=== PATIENT | male | born 1940 | race Caucasian/White ===

== ENCOUNTER → 2016-10-07 15:38 | Outpatient (CLI) | payer MEDICARE, OTHER ==
[2015-02-14 10:24] VITALS: BMI 28.7
[~2016-10-07 15:38] MED LIST: ELIQUIS2.5 MG PO; MS CONTIN15 MG PO; NAPROSYN250 MG PO; ROXICODONE15 MG PO; VIAGRA100 MG PO
== END | disposition home or self-care (01) ==
LOC: D.MRI 15:38
DX: M75.82 Other shoulder lesions, left shoulder (principal)